=== PATIENT | female | born 1945 | race Caucasian/White ===

== ENCOUNTER 2018-10-11 16:57 | Inpatient (IN) | payer OTHER ==
[~2018-10-11] VITALS: Ht 162.6 cm; Wt 72.6 kg
[2018-10-11] MEDS ORDERED: KETOROLAC 30MG/ML VIAL IV STA (18:05)
[2018-10-11] MEDS ORDERED: SODIUM CHLORIDE 0.9% 1,000 ML IV ONE (18:05)
[2018-10-11 18:35] LABS: BASOPHILS % 0.3 % (0.0-2.0); EOSINOPHILS % 0.5 % (0.0-5.0); HEMATOCRIT. 42.2 % (36.0-48.0); HEMOGLOBIN. 14.2 g/dL (12.0-16.0); LYMPHOCYTES % 9.5 % (20.0-50.0); MEAN CORPUSCULAR HEMOGLOBIN 30.9 pg (28.0-32.0); MEAN CORPUSCULAR VOLUME 91.8 fL (81.0-99.0); MEAN PLATELET VOLUME 7.9 fl (7.4-10.4); MONOCYTES % 5.5 % (2.0-8.0); NEUTROPHILS % 84.2 % (40.0-76.0); PLATELET 264 x1000/uL (130-400); RED CELL DISTRIBUTION WIDTH 12.9 % (11.6-14.6)
[2018-10-11 18:37] LABS: CHLORIDE 102 mEq/L (98-107)
[2018-10-11 18:42] LABS: PARTIAL THROMBOPLASTIN TIME 23.2 sec (23.4-31.0)
[2018-10-11 20:40] LABS: CLARITY URINE CLEAR (CLEAR); COLOR URINE YELLOW (YELLOW); KETONES URINE NEGATIVE (NEGATIVE); LEUKOCYTE ESTERASE URINE 1+ (NEGATIVE); NITRITE URINE NEGATIVE (NEGATIVE); OCCULT BLOOD URINE NEGATIVE (NEGATIVE); PH URINE 7.5 (4.5-8.0); PROTEIN URINE NEGATIVE (NEGATIVE); SPECIFIC GRAVITY URINE 1.009 (1.005-1.030); UROBILINOGEN URINE 0.2 E.U./dL (0.2-1.0)
[2018-10-11] MEDS ORDERED: ONDANSETRON HCL 4MG/2ML INJ IV PRN (21:15)
[2018-10-11] MEDS ORDERED: DOCUSATE SODIUM 100MG CAPSULE PO PRN (21:15)
[2018-10-11] MEDS ORDERED: KETOROLAC 15MG/ML VIAL IV PRN (21:15)
[2018-10-11] MEDS ORDERED: POTASSIUM CHLORIDE 20MEQ TABLET SR PO NR (21:15)
[2018-10-11] MEDS ORDERED: ZOLPIDEM TARTRATE 5MG TABLET PO PRN (21:15)
[2018-10-11] MEDS: ENOXAPARIN 40MG/0.4ML SYR SUBCUT SCH (21:15)
[2018-10-11] MEDS ORDERED: MAGNESIUM/ALUMINUM HYDROXIDE/SIMETHICONE 30ML UDC PO PRN (21:15)
[2018-10-11] MEDS ORDERED: TRAMADOL 50MG TABLET PO PRN (21:15)
[2018-10-11] MEDS ORDERED: ACETAMINOPHEN 325MG TABLET PO PRN (21:15)
[2018-10-11] MEDS ORDERED: CLONIDINE 0.1MG TABLET PO PRN (21:15)
[2018-10-11] MEDS ORDERED: NITROGLYCERIN 0.4MG TABLET SL SL PRN (21:15)
[2018-10-11] MEDS ORDERED: IPRATROPIUM/ALBUTEROL 0.5-3(2.5)MG/3ML NEB INH PRN (21:15)
[2018-10-11] MEDS ORDERED: GUAIFENESIN 200MG/10ML SUGAR FREE UDC PO PRN (21:15)
[2018-10-11] MEDS ORDERED: CEFTRIAXONE 1 G PREMIX 50 ML IV ONE (21:30)
[2018-10-11] MEDS ORDERED: LEVOFLOXACIN 500MG PREMIX 100 ML IV NR (22:45)
[2018-10-11 23:16] LABS: CREATINE KINASE 131 IU/L (26-192)
[2018-10-11 23:17] LABS: CREATINE KINASE MB FRACTION 1.4 ng/mL (0.5-3.6)
[2018-10-12 06:12] LABS: CREATINE KINASE 125 IU/L (26-192)
[2018-10-12 06:13] LABS: CREATINE KINASE MB FRACTION 1.3 ng/mL (0.5-3.6)
[2018-10-12] MEDS ORDERED: ASPIRIN 325MG EC TABLET PO SCH (09:00)
[2018-10-12] MEDS ORDERED: ASCORBIC ACID 500 MG TABLET PO SCH (09:00)
[2018-10-12] MEDS ORDERED: ZINC SULFATE 220 MG ( 50 ) CAPSULE PO SCH (09:00)
[2018-10-12] MEDS ORDERED: FAMOTIDINE 20MG TABLET PO SCH (09:00)
[2018-10-12 10:00] VITALS: BP 140/83
[2018-10-12 12:00] VITALS: BP 140/83
[2018-10-12 12:18] VITALS: BP 140/83
[2018-10-12] MEDS: ZINC SULFATE 220 MG ( 50 ) CAPSULE PO SCH ×2 (12:46→12:47)
[2018-10-12] MEDS: ASPIRIN 325MG EC TABLET PO SCH (12:47)
[2018-10-12] MEDS: FAMOTIDINE 20MG TABLET PO SCH (12:47)
[2018-10-12] MEDS: ASCORBIC ACID 500 MG TABLET PO SCH ×2 (12:47→21:30)
[2018-10-12 13:29] LABS: HEMATOCRIT 41.1 % (36.0-48.0); HEMOGLOBIN 13.9 g/dL (12.0-16.0); MEAN CORPUSCULAR VOLUME 91.5 fL (81.0-99.0); PLATELET 252 x1000/uL (130-400); RED BLOOD CELL COUNT 4.49 mill/uL (4.2-5.4)
[2018-10-12 13:35] LABS: CHLORIDE 108 mEq/L (98-107)
[2018-10-12] MEDS: LEVOFLOXACIN 250MG PREMIX 50 ML IV SCH (13:38)
[2018-10-12] MEDS: CEFTRIAXONE 1 G PREMIX 50 ML IV SCH (13:39)
[2018-10-12] MEDS ORDERED: LOSA1TAB34 PO (13:59)
[2018-10-12 14:14] LABS: *AMPHETAMINES SCREEN URINE NEGATIVE (NEGATIVE)
[2018-10-12 14:15] LABS: *BARBITURATES SCREEN URINE NEGATIVE (NEGATIVE); *BENZODIAZEPINES SCREEN URINE NEGATIVE (NEGATIVE); *COCAINE SCREEN URINE NEGATIVE (NEGATIVE); METHADONE URINE SCREEN NEGATIVE (NEGATIVE); OPIATES URINE SCREEN NEGATIVE (NEGATIVE)
[2018-10-12 14:16] LABS: CANNABINOID URINE SCREEN NEGATIVE (NEGATIVE); PHENCYCLIDINE URINE SCREEN NEGATIVE (NEGATIVE)
[2018-10-12 16:00] VITALS: BP 132/73
[2018-10-12 18:10] VITALS: BP 132/72
[2018-10-12 20:23] VITALS: BP 104/71
[2018-10-12] MEDS ORDERED: ATORVASTATIN CALCIUM 20MG TABLET PO SCH (21:00)
[2018-10-12] MEDS ORDERED: CEFTRIAXONE 1 G PREMIX 50 ML IV SCH (21:00)
[2018-10-12] MEDS: ZOLPIDEM TARTRATE 5MG TABLET PO PRN (21:30)
[2018-10-12] MEDS: ATORVASTATIN CALCIUM 20MG TABLET PO SCH (21:30)
[2018-10-12] MEDS: ENOXAPARIN 40MG/0.4ML SYR SUBCUT SCH (21:32)
[2018-10-12] MEDS ORDERED: LEVOFLOXACIN 500MG PREMIX 100 ML IV SCH (22:00)
[2018-10-13] VITALS: BP 112/74
[2018-10-13 04:00] VITALS: BP 126/71
[2018-10-13 08:51] VITALS: BP 126/69
[2018-10-13] MEDS: FAMOTIDINE 20MG TABLET PO SCH (09:43)
[2018-10-13] MEDS: ZINC SULFATE 220 MG ( 50 ) CAPSULE PO SCH (09:43)
[2018-10-13] MEDS: ASCORBIC ACID 500 MG TABLET PO SCH ×2 (09:43→20:09)
[2018-10-13] MEDS: ASPIRIN 325MG EC TABLET PO SCH (09:43)
[2018-10-13 12:00] VITALS: BP 116/71
[2018-10-13] MEDS: CEFTRIAXONE 1 G PREMIX 50 ML IV SCH (14:15)
[2018-10-13] MEDS: LEVOFLOXACIN 250MG PREMIX 50 ML IV SCH (14:16)
[2018-10-13 16:00] VITALS: BP 119/58
[2018-10-13] MEDS: ZOLPIDEM TARTRATE 5MG TABLET PO PRN (20:09)
[2018-10-13] MEDS: ATORVASTATIN CALCIUM 20MG TABLET PO SCH (20:09)
[2018-10-13] MEDS ORDERED: ENOXAPARIN 40MG/0.4ML SYR SUBCUT SCH (21:00)
[2018-10-13 21:03] VITALS: BP 140/78
[2018-10-14] MEDS ORDERED: CEFTRIAXONE 1,000 MG in DEXTROSE 5% WATER 50 ML IV SCH (09:00)
== END 2018-10-13 21:45 | disposition short-term general hospital (02) | DRG 872 ==
LOC: ER 16:57 → 7WST 20:40 → ENRESERV 10-12 08:55 → SUPCPDRO 10-12 09:50 → ER 10-12 10:36
PROVIDERS: ADMIT Internal Medicine; ATTEND Internal Medicine
DX: A41.9 Sepsis, unspecified organism (principal); N39.0 Urinary tract infection, site not specified; E87.6 Hypokalemia; I10 Essential (primary) hypertension; I95.9 Hypotension, unspecified; Z88.8 Allergy status to other drugs, medicaments and biological substances; W18.39XA Other fall on same level, initial encounter; Y93.89 Activity, other specified; Y92.89 Other specified places as the place of occurrence of the external cause; Y99.8 Other external cause status
CPT/HCPCS: 36415; 70486; 71045; 73110; 73130; 80048; 80061; 80305; 82550; 82553; 83036; 83880; 84484; 85027; 93005; 93970; 96365; 96375; 99285; J0696; J1650; J1885; J1956; J7030; J7060